=== PATIENT | male | born 1965 | race Native Hawaiian/Other Pacific Islander ===

== ENCOUNTER 2020-07-31 15:23 | Outpatient (CLI) | payer OTHER ==
[2020-07-31 15:31] LABS: PLATELET COUNT 204 K/uL (142-355)
[2020-07-31 16:16] LABS: POTASSIUM 4.3 mmol/L (3.6-5.2)
== END 2020-07-31 19:40 | disposition home or self-care (01) ==
LOC: LAB 15:23
PROVIDERS: ATTEND Physician Assistant
DX: I10 Essential (primary) hypertension (principal); Z13.29 Encounter for screening for other suspected endocrine disorder; Z13.0 Encounter for screening for diseases of the blood and blood-forming organs and certain disorders involving the immune mechanism; Z13.220 Encounter for screening for lipoid disorders; Z72.0 Tobacco use; R53.83 Other fatigue; R35.8 Other polyuria
CPT/HCPCS: 80053; 80061; 82306; 82607; 83036; 84153; 84443; 85027

== ENCOUNTER 2021-01-29 16:11 | Outpatient (CLI) | payer OTHER ==
[2021-01-29 18:35] LABS: POTASSIUM 4.9 mmol/L (3.6-5.2)
== END 2021-01-29 19:11 | disposition home or self-care (01) ==
LOC: LAB 16:11
PROVIDERS: ATTEND Nurse Practitioner Family
DX: R73.09 Other abnormal glucose (principal); I10 Essential (primary) hypertension; E78.5 Hyperlipidemia, unspecified; E55.9 Vitamin D deficiency, unspecified
CPT/HCPCS: 80053; 80061; 82306; 83036